=== PATIENT | male | born 1970 | race Caucasian/White ===

== ENCOUNTER → 2018-01-15 07:21 | Outpatient (CLI) | payer SELFPAY ==
[2018-01-15 10:05] LABS: Hematocrit 47.6 % (40-54); Hemoglobin 16.4 g/dl (13.0-16.5); Mean Corp Hgb Conc 34.5 g/gl (32-36); Mean Corpuscular Hgb 30.9 pg (27.0-32.0); Mean Corpuscular Volume 89.8 fL (80-94); Mean Platelet Vol. 9.5 fl (6.2-12.0); Platelet Count 233 K/mm3 (150-450); RBC Distribution Width CV 13.5 % (11.6-14.6); RBC Distribution Width SD 44.5 fl (35.1-43.9); Scan Indicated on CBC? Y/N NO; White Blood Count 4.6 K/mm3 (4.4-11.0)
[2018-01-15 10:30] LABS: Hemoglobin A1c 5.8 % (4.2-6.3)
[2018-01-15 10:52] LABS: ALB/GLOB Ratio 1.1 RATIO (0.9-2.4); AST(SGOT) 32 U/L (15-37); Alanine Aminotransfer ALT/SGPT 52 U/L (16-61); Albumin, Serum 3.7 g/dL (3.2-5.0); Alkaline Phosphatase 75 U/L (45-117); Anion Gap 9 (5-15); BUN 13 mg/dL (7-18); Calcium,Total 8.3 mg/dL (8.5-10.1); Chloride 104 mmol/L (98-107); Cholesterol 204 mg/dL (200); EST Glomerular Filtration Rate 84 mL/min (>60); Est Glom Filt Rate - Afr Amer 102 mL/min (>60); Estradiol 63.4 pg/mL; Follicle Stimulating Hormone < 0.2 mIU/mL; Free T3 3.1 pg/mL (2.18-3.98); Globulin 3.5 g/dL (2.2-4.2); Glucose 97 mg/dL (74-106); High Density Lipoprotein 49 mg/dL; Luteinizing Hormone < 0.2 mIU/mL; PSA,Total - Annual Screen 1.13 ng/mL (0.00-4.00); Potassium 4.1 mmol/L (3.5-5.1); Protein, Total 7.2 g/dL (6.4-8.2); Sodium Level 138 mmol/L (136-145); T4 Free Direct 0.76 ng/dL (0.76-1.46); T4 Total, Thyroxin 8.1 ug/dL (4.5-12.1); Thyroid Stim Hormone (TSH) 2.41 uIU/mL (0.358-3.74); Triglycerides 78 mg/dL; Very Low Density Lipoprotein 16 mg/dL (5-40)
[2018-01-15 12:03] LABS: Homocysteine 7.2 umol/L (3.2-10.7)
[2018-01-18 16:38] LABS: DHEA Sulfate 296.4 ug/dL (71.6-375.4); Insulin Like Growth Factor 231 ng/mL (67-205); Testosterone, % Free 4.71 % (1.50-4.20); Testosterone, Free 42.15 ng/dL (5.00-21.00)
[2018-01-19 13:27] LABS: Sex Hormone-binding Globulin 31.7 nmol/L (16.5-55.9); Testosterone, Total 895 ng/dL (264-916)
== END ==
PROVIDERS: Family Provider Family Medicine; PCP Family Medicine; Referring Provider Chiropractor; Visit Provider Chiropractor
DX: R53.83 Other fatigue (principal)
CPT/HCPCS: 36415; 80053; 80061; 82306; 82533; 82627; 82670; 83001; 83002; 83036; 83090; 84153; 84270; 84305; 84402; 84403; 84436; 84439; 84443; 84481; 85027; 82626; G0103

== ENCOUNTER 2021-05-12 07:48 | Outpatient (CLI) | payer SELFPAY ==
[2021-05-12 10:24] LABS: Progesterone Level 0.67 ng/mL (See Comment); Vitamin D,25 Hydroxy 62.8 ng/mL
[2021-05-12 10:25] LABS: AST(SGOT) 26 U/L (15-37); Alanine Aminotransfer ALT/SGPT 41 U/L (16-61); Albumin, Serum 3.4 g/dL (3.2-5.0); Alkaline Phosphatase 64 U/L (45-117); Anion Gap 5 (5-15); BUN 13 mg/dL (7-18); Calcium,Total 8.7 mg/dL (8.5-10.1); Chloride 106 mmol/L (98-107); Cholesterol 227 mg/dL (200); EST Glomerular Filtration Rate 83 mL/min (>60); Est Glom Filt Rate - Afr Amer 101 mL/min (>60); Estradiol 42.8 pg/mL; Globulin 3.3 g/dL (2.2-4.2); Glucose 105 mg/dL (74-106); High Density Lipoprotein 51 mg/dL; PSA,Total - Annual Screen 1.06 ng/mL (0.00-4.00); Protein, Total 6.7 g/dL (6.4-8.2); Sodium Level 138 mmol/L (136-145); Triglycerides 71 mg/dL; Very Low Density Lipoprotein 14 mg/dL (5-40)
[2021-05-15 17:06] LABS: Testosterone, Free 24.69 ng/dL (5.00-21.00)
[2021-05-15 18:05] LABS: Testosterone, % Free 2.95 % (1.50-4.20); Testosterone, Total 837 ng/dL (264-916)
== END 2021-05-12 23:59 | disposition home or self-care (01) ==
PROVIDERS: PCP Nurse Practitioner Family; Referring Provider Nurse Practitioner Family; Visit Provider Nurse Practitioner Family
DX: R53.82 Chronic fatigue, unspecified (principal)
CPT/HCPCS: 36415; 80053; 80061; 82306; 82670; 84144; 84153; 84402; 84403; G0103

== ENCOUNTER → 2022-06-27 | Outpatient (CLI) | payer SELFPAY ==
[2022-06-27 18:49] LABS: Progesterone Level 0.44 ng/mL (See Comment)
[2022-07-03 17:07] LABS: Estrogen, Total, Serum 175 pg/mL (56-213); Testosterone Free 22.6 pg/mL (7.2-24.0)
== END | disposition home or self-care (01) ==
PROVIDERS: PCP Nurse Practitioner Family
DX: R53.83 Other fatigue (principal)
CPT/HCPCS: 36415; 82672; 84144; 84402